=== PATIENT | male | born 1970 | race Two or more races ===

== ENCOUNTER 2024-08-13 20:19 | Inpatient (IN) | payer OTHER ==
[~2024-08-13] VITALS: Ht 175.3 cm; Wt 89.5 kg
--- NOTE | 2024-08-13 20:47 | ED.PDOC ---
GI ASSESSMENT HPI Comments 54y M who presents to the ED via EMS for chief complaint of vomiting. Pt states he has been having vomiting with diarrhea for the past 20 hours straight. Pt states he has not been able to keep anything down. Pt otherwise denies any sick contacts or changes to diet. Pt in the ED, states he is having associated generalized weakness. Pt otherwise denies fever, cough, chills, abdominal pain, dysuria, hematuria or hematemesis. Pt denies use of antibiotics currently. Pt denies any other symptoms at this time. Chief Complaint: Nausea/Vomiting Time Seen by MD: 20:43 Reviewed Notes: Nurses Notes, Hot Box Checker Notes, Medications, Allergies (NKDA) Information Source: Patient, Emergency Med Personnel Mode of Arrival: EMS Brought in by: EMS Timing: Hours Duration: Since onset Prehospital treatment: None Quality: None Vomitus: Food Particles Stool: Loose Severity: Moderate Recent: None Recent Hx of: None Pain Location: None Modifying Factors: Nothing Associated sign and symptoms: Vomiting, Diarrhea Past Medical History PAST MEDICAL HISTORY: DM, High Lipids, HTN Surgical History: Denies all surgeries Family History Family History: Family hx of DM Social History Smoker: Non-Smoker Alcohol: Denies ETOH Use Drugs: Denies Drug Use Lives In: Home Constitutional: denies: chills, diaphoresis, fatigue, fever, malaise, sweats, weakness, others EENTM: denies: blurred vision, double vision, ear bleeding, ear discharge, ear drainage, ear pain, ear ringing, eye pain, eye redness, hearing loss, mouth pain, mouth swelling, nasal discharge, nose bleeding, nose congestion, nose pain, photophobia, tearing, throat pain, throat swelling, voice changes, others Respiratory: denies: cough, hemoptysis, orthopnea, SOB at rest, shortness of breath, SOB with excertion, stridor, wheezing, others Cardiovascular: denies: chest pain, dizzy spells, diaphoresis, Dyspnea on exertion, edema, irregular heart beat, left arm pain, lightheadedness, palpitations, PND, syncope, others Gastrointestinal: reports: diarrhea, vomiting; denies: abdomen distended, abdominal pain, blood streaked bowels, constipated, dysphagia, difficulty swallowing, hematemesis, melena, nausea, poor appetite, poor fluid intake, rectal bleeding, rectal pain, others Genitourinary: denies: burning, dysuria, flank pain, frequency, hematuria, incontinence, penile discharge, penile sore, pain, testicle pain, testicle swelling, urgency, others Neurological: denies: dizziness, fainting, headache, left sided numbness, left sided weakness, numbness, paresthesia, pre-existing deficit, right sided numbness, right sided weakness, seizure, speech problems, tingling, tremors, weakness, others Musculoskeletal: denies: back pain, gout, joint pain, joint swelling, muscle pain, muscle stiffness, neck pain, others Integumetry: denies: bruises, change in color, change in hair/nails, dryness, laceration, lesions, lumps, rash, wounds, others Allergic/Immunocompromised: denies: Difficulty Healing, Frequent Infections, Hives, Itching, others Hematologic/Lymphatic: denies: anemia, blood clots, easy bleeding, easy bruising, swollen glands, others Endocrine: denies: excessive hunger, excessive sweating, excessive thirst, excessive urination, flushing, intolerance to cold, intolerance to heat, unexplained weight gain, unexplained weight loss, others Psychiatric: denies: anxiety, bipolar disorder, depression, hopeless, panic disorder, schizophrenia, sleepless, suicidal, others All Other Systems: Reviewed and Negative Physical Exam General Appearance: Moderate Distress HEENT: Normal ENT Inspection, Pharynx Normal, TMs Normal Neck: Full Range of Motion, Non-Tender, Normal, Normal Inspection Respiratory: Chest Non-Tender, Lungs Clear, No Accessory Muscle Use, No Respiratory Distress, Normal Breath Sounds Cardiovascular: No Edema, No JVD, No Murmur, No Gallop, Normal Peripheral Pulses, Regular Rate/Rhythm Breast Exam: Deferred Gastrointestinal: Diffuse, No Organomegaly, No Pulsatile Mass, Normal Bowel Sounds, Soft, Tenderness Genitalia: Deferred Pelvic: Deferred Rectal: Deferred Extremities: No calf tenderness, Normal capillary refill, Normal inspection, Normal range of motion, Non-tender, No pedal edema Musculoskeletal : Apperance: Normal Neurologic: Alert, commercial relief driver II-XII nml as Tested, No Motor Deficits, Normal Affect, Normal Mood, No Sensory Deficits Cerebellar Function: Normal Reflexes: Normal Skin: Dry, Normal Color, Warm Lymphatic: No Adenopathy Was a procedure done? Was a procedure done?: No GI differential Dx Differential Diagnosis: Constipation, Diverticular disease, Gastritis/PUD, Gastroenteritis, GI hemorrhage, Inflammatory BD, Pancreatitis, Dehydration, Diabetes/ DKA, Electrolyte Imbalance, Food Poisoning, Bacterial, Viral Other Differential Diagnosis colitis, enteritis, X-Ray, Labs, Meds, VS Vital Signs Date Time Temp Pulse Resp B/P (MAP) Pulse Ox O2 Delivery O2 Flow Rate FiO2 08/13/24 20:19 98.1 96 17 121/71 (88) 97 Lab Test 08/13/24 20:50 Range/Units White Blood Count 9.8 4.4-10.8 10^3/uL Red Blood Count 5.18 4.5-5.90 10^6/uL Hemoglobin 15.5 13.5-17.5 g/dL Hematocrit 46.7 41.0-53.0 % Mean Corpuscular Volume 90.1 80.0-100.0 fL Mean Corpuscular Hemoglobin 29.9 28.0-32.0 pg Mean Corpuscular Hemoglobin Concent 33.2 32.0-36.0 g/dL Red Cell Distribution Width 13.4 11.8-14.3 % Platelet Count 243 140-450 10^3/uL Mean Platelet Volume 7.9 6.9-10.8 fL Neutrophils (%) (Auto) 62.3 37.0-80.0 % Lymphocytes (%) (Auto) 24.3 10.0-50.0 % Monocytes (%) (Auto) 10.5 0.0-12.0 % Eosinophils (%) (Auto) 2.5 0.0-7.0 % Basophils (%) (Auto) 0.4 0.0-2.0 % Neutrophils # (Auto) 6.1 1.6-8.6 10 ^3/uL Lymphocytes # (Auto) 2.4 0.4-5.4 10 ^3/uL Monocytes # (Auto) 1.0 0-1.3 10 ^3/uL Eosinophils # (Auto) 0.2 0-0.8 10 ^3/uL Basophils # (Auto) 0 0-0.2 10 ^3/uL Nucleated Red Blood Cells 0.1 % Sodium Level 135 L 136-145 mmol/L Potassium Level 4.7 3.5-5.1 mmol/L Chloride Level 106 98-107 mmol/L Carbon Dioxide Level 21 20-31 mmol/L Anion Gap 8 5-15 Blood Urea Nitrogen 12 9-23 mg/dL Creatinine 0.96 0.700-1.30 mg/dL Glomerular Filtration Rate Calc 93 >90 mL/min BUN/Creatinine Ratio 12.5 10.0-20.0 Serum Glucose 164 H 74-106 mg/dL Calcium Level 9.4 8.7-10.4 mg/dL Current Medications Medications (Trade) Dose Ordered Sig/Missy Route Start Time Stop Time Status Last Admin Sodium Chloride 1,000 ml @ 1,000 mls/hr Q1H ONCE IV 08/13/24 20:45 08/13/24 21:44 DC 08/13/24 21:22 The CBC and chemistry panel are within normal limits An IV Hep-Lock was established The patient was given a 1 L bolus of normal saline The patient was being admitted with a diagnosis of intractable vomiting and metabolic acidosis Images Reviewed?: Images reviewed and evaluated by me Time of 1ST Reevaluation: 21:15 Reevaluation 1ST: Unchanged Patient Education/Counseling: Diagnosis, Treatment Family Education/Counseling: Diagnosis, Treatment Additional Information - I reviewed the following notes from patient's past medical encounters: - The following tests were ordered, and results were reviewed by me: (Labs, X- Ray, EKG): cbc, bmp, ua, - Additional information was gathered from interviewing the following independent Historian: (Family, Other Providers, EMT): EMS - I reviewed and agreed with the following test results read by other provider: (X-ray, CT, US): none - I discussed treatments and results with medical personnel and: (consultants, family): none Departure 1 Departure Time of Disposition: 22:09 Impression: Primary Impression: Metabolic acidosis Additional Impressions: Dehydration Abdominal pain Qualified Codes: R10.84 - Generalized abdominal pain Disposition: ADMITTED INPATIENT Admit to: Med Surg Condition: Fair Critical Care Note Critical Care Time?: No Stability Stability form required: No Heart Score Heart Score: Heart Score Response (Comments) Value History N/A 0 EKG N/A 0 Age N/A 0 Risk Factors N/A 0 Troponin N/A 0 Total 0 I personally scribed for DUSTY HANSEN MD ([email or web address]) on 08/13/24 at 20:47. Electronically submitted by Bobbi Bishop ([email or web address]). DUSTY HANSEN MD Aug 13, 2024 20:47
[2024-08-13] MEDS: SODIUM CHLORIDE 0.9% 1,000 ML IV ONE (21:22)
[2024-08-13 21:26] LABS: Basophils # (auto) 0 10 ^3/uL (0-0.2); Basophils % (auto) 0.4 % (0.0-2.0); Eosinophils # (auto) 0.2 10 ^3/uL (0-0.8); Eosinophils % (auto) 2.5 % (0.0-7.0); Hematocrit 46.7 % (41.0-53.0); Hemoglobin 15.5 g/dL (13.5-17.5); Lymphocytes # (auto) 2.4 10 ^3/uL (0.4-5.4); Lymphocytes % (auto) 24.3 % (10.0-50.0); Mean Corpuscular Hemoglobin 29.9 pg (28.0-32.0); Mean Corpuscular Hgb Conc. 33.2 g/dL (32.0-36.0); Mean Corpuscular Volume 90.1 fL (80.0-100.0); Monocytes % (auto) 10.5 % (0.0-12.0); Neutrophils # (auto) 6.1 10 ^3/uL (1.6-8.6); Neutrophils % (auto) 62.3 % (37.0-80.0); Nucleated Red Blood Cells % 0.1 %; Platelet Count (auto) 243 10^3/uL (140-450); Red Blood Cells 5.18 10^6/uL (4.5-5.90); Red Cell Distribution Width 13.4 % (11.8-14.3); White Blood Cell 9.8 10^3/uL (4.4-10.8)
[2024-08-13 21:34] LABS: Chloride 106 mmol/L (98-107); Potassium 4.7 mmol/L (3.5-5.1)
[2024-08-13 21:35] LABS: Anion Gap 8 (5-15); Calcium 9.4 mg/dL (8.7-10.4); Carbon Dioxide 21 mmol/L (20-31)
[2024-08-13 21:40] LABS: BUN/Creatinine Ratio 12.5 (10.0-20.0); Blood Urea Nitrogen 12 mg/dL (9-23)
[2024-08-13 21:45] LABS: Glucose 164 mg/dL (74-106); Sodium 135 mmol/L (136-145)
[2024-08-14] VITALS (8 sets, daily range): BP systolic 107–131; BP diastolic 69–83; PULSE 69–88; RESP 14–20; TEMP 96.3–98.7; O2SAT 95–100
--- NOTE | 2024-08-14 07:25 | DVHHP2 ---
History of Present Illness Reason for Visit: Abdominal pain History of Present Illness Octavio Aguilera is a 54-year-old male with past medical history of hypertension, hyperlipidemia, and diabetes who presents to the ED for nausea, vomiting, diarrhea, and abdominal pain x1 day. Patient states that he was [place] Patient reports that the pain is 3/10 constant and throbbing. Patient reports that the pain does not radiate anywhere. Patient denies any recent ingestion of spoiled food, recent sick contacts, recent trauma or injury, chest pain, shortness of breath, fever, chills, lightheadedness, and weakness. Cardiovascular: HTN, hyperipidemia Endocrine: Diabetes Past Surgical History: None Family History: DM, Other (Mom with diabetes) Smoke: No ALCOHOL: none Drugs: None Lives: with Family Domestic Violence: Neg Review of Systems Constitutional: No: Fever, Chills, Sweats, Weakness, Malaise, Other Eyes: No: Pain, Vision change, Conjunctivae inflammation, Eyelid inflammation, Other, Redness ENT: No: Ear pain, Ear discharge, Nose pain, Nose discharge, Nose congestion, Mouth pain, Mouth swelling, Throat pain, Throat swelling, Other Respiratory: No: Cough, Dry, Shortness of breath, SOB with excertion, Wheezing, Hemoptysis, Pleuritic Pain, Sputum, Wheezing, Other Cardiovascular: No: Chest Pain, Palpitations, Orthopnea, Paroxysmal Noc. Dyspnea, Edema, Lt Headedness, Other Gastrointestinal: Nausea, Vomiting, Abdominal Pain, Diarrhea; No: Constipation, Melena, Hematochezia, Other Genitourinary: No Dysuria, No Frequency, No Incontinence, No Hematuria, No Retention, No Other Musculoskeletal: No: other, neck pain, shoulder pain, arm pain, back pain, hand pain, leg pain, foot pain Skin: No: Rash, Lesions, Jaundice, Bruising, Other Neurological: No: Weakness, Numbness, Incoordination, Change in speech, Confusion, Seizures, Other Allergies: Coded Allergies: NO KNOWN ALLERGIES (Unverified , 08/14/24) Exam Vital Signs Vital Signs Date Time Temp Pulse Resp B/P (MAP) Pulse Ox O2 Delivery O2 Flow Rate FiO2 08/14/24 04:00 78 08/14/24 03:00 16 120/81 (94) 95 08/14/24 00:50 Room Air* 0 21 08/14/24 00:50 98.4 98.4 General Appearance: Alert, Oriented X3, Cooperative, No acute distress HEENT: Atraumatic, PERRLA, EOMI, Mucous membr. moist/pink Respiratory: Clear to auscultation, Normal air movement Cardiovascular: Regular rate, Normal S1, Normal S2, No murmurs Abdominal: Soft, No hepatospenomegaly, No masses Extremities: No clubbing, No cyanosis, No edema, Normal pulses, No tenderness/swelling Skin: No significant lesion Neuro: Normal gait, Normal speech, Strength at 5/5 X4 ext, Normal tone, Sensation intact Psych/Mental Status: Mental status NL, Mood NL Labs/Xrays Labs Test 08/13/24 20:50 Range/Units White Blood Count 9.8 4.4-10.8 10^3/uL Red Blood Count 5.18 4.5-5.90 10^6/uL Hemoglobin 15.5 13.5-17.5 g/dL Hematocrit 46.7 41.0-53.0 % Mean Corpuscular Volume 90.1 80.0-100.0 fL Mean Corpuscular Hemoglobin 29.9 28.0-32.0 pg Mean Corpuscular Hemoglobin Concent 33.2 32.0-36.0 g/dL Red Cell Distribution Width 13.4 11.8-14.3 % Platelet Count 243 140-450 10^3/uL Mean Platelet Volume 7.9 6.9-10.8 fL Neutrophils (%) (Auto) 62.3 37.0-80.0 % Lymphocytes (%) (Auto) 24.3 10.0-50.0 % Monocytes (%) (Auto) 10.5 0.0-12.0 % Eosinophils (%) (Auto) 2.5 0.0-7.0 % Basophils (%) (Auto) 0.4 0.0-2.0 % Neutrophils # (Auto) 6.1 1.6-8.6 10 ^3/uL Lymphocytes # (Auto) 2.4 0.4-5.4 10 ^3/uL Monocytes # (Auto) 1.0 0-1.3 10 ^3/uL Eosinophils # (Auto) 0.2 0-0.8 10 ^3/uL Basophils # (Auto) 0 0-0.2 10 ^3/uL Nucleated Red Blood Cells 0.1 % Sodium Level 135 L 136-145 mmol/L Potassium Level 4.7 3.5-5.1 mmol/L Chloride Level 106 98-107 mmol/L Carbon Dioxide Level 21 20-31 mmol/L Anion Gap 8 5-15 Blood Urea Nitrogen 12 9-23 mg/dL Creatinine 0.96 0.700-1.30 mg/dL Glomerular Filtration Rate Calc 93 >90 mL/min BUN/Creatinine Ratio 12.5 10.0-20.0 Serum Glucose 164 H 74-106 mg/dL Calcium Level 9.4 8.7-10.4 mg/dL REASON: abd pain ORDER NUMBER(s): [id number], ACCESSION NUMBER(s): [id number] CLINICAL INFORMATION: 54 years old, Male; abdominal pain. TECHNIQUE: Axial CT images of the abdomen and pelvis were obtained without IV contrast. Coronal and sagittal reformatted images were obtained, reviewed, and stored. Evaluation of the parenchymal organs is limited without IV contrast. Evaluation of the bowel and mesentery is limited without oral contrast. All CT scans at this medical facility are performed using dose modulation techniques as appropriate to a performed exam including the following: Automated exposure control was utilized; adjustment of the MA and/or KV according to patient size; and use of iterative reconstruction technique. CTDIvol = 9.46 mGy DLP = 489.68 mGy-cm COMPARISON: None FINDINGS: Lung bases: Lung bases are clear. Liver: Grossly unremarkable in its noncontrast enhanced appearance. No abnormal density or focal lesion identified. Biliary: No calcified gallstones or biliary ductal dilatation. Spleen: Unremarkable. Pancreas: Grossly unremarkable in its noncontrast enhanced appearance. Adrenal glands: Unremarkable. No mass. Kidneys: No hydronephrosis. No renal or ureteral calculi. Aorta/Vascular: Scattered mild atherosclerotic calcification. No abdominal aortic aneurysm. Retroperitoneum: No mass or lymphadenopathy. Bowel/mesentery: Nonspecific nondilated fluid-filled small bowel loops. No small bowel obstruction. Appendix is visualized and appears unremarkable. Scattered small colonic diverticula without adjacent inflammatory changes to suggest diverticulitis. Pelvic organs: Grossly unremarkable. Bladder: Unremarkable. No mass. Abdominal wall: No mass or hernia. Bones: No acute fracture or suspicious intraosseous lesion. IMPRESSION: 1. Nonspecific nondilated fluid-filled small bowel loops. Findings may be seen with ileus or enteritis in the appropriate clinical setting. No small bowel obstruction. 2. Scattered small colonic diverticula without adjacent inflammatory changes to suggest diverticulitis. 3. Additional nonacute findings as described above. EXAM: XR Chest, 1 View CLINICAL INDICATION: pain TECHNIQUE: Frontal view of the chest. COMPARISON: None FINDINGS: LUNGS AND PLEURAL SPACES: Unremarkable. No consolidation. No pneumothorax. HEART: Unremarkable. No cardiomegaly. MEDIASTINUM: Unremarkable. Normal mediastinal contour. BONES/JOINTS: Unremarkable. No acute fracture. OTHER FINDINGS: . None. ... IMPRESSION: No acute cardiopulmonary process. Assessment/Plan Assessment/Plan Assessment/Plan: Intractable abdominal pain likely due to enteritis versus diverticulitis NS 1 L given ED UA CT abdomen and pelvis Chest x-ray Antiemetics Pain management A.m. labs Labs IV antibiotics-vancomycin + Zosyn Diabetes type 2 uncontrolled Hemoglobin A1c 8.5% ISS and Accu-Cheks History of hypertension Continue home medications History of hyperlipidemia Continue home medications FEN/PPX Diet Hep-Lock DVT prophylaxis not indicated patient ambulating PUD prophylaxis - Protonix Admit to med surg Home medications reconciled Discussed plan of care with patient and nurse Plan discussed with: Patient My Orders Orders - MISHEL CHANG SEXUAL ASSAULT COUNSELOR Procedure Category Date Status Time Ct Ab Pel Wo Con-No CT 08/14/24 Transmitted Oral Or Iv 07:21 Admit ADMIT 08/14/24 Transmitted 07:21 Allergies ANA PAULA 08/14/24 Transmitted 07:21 Code Status CODE 08/14/24 Transmitted 07:21 Hydrocodone-Acet PHA 08/14/24 Transmitted 5/325mg Tab ([place] 07:30 Ondansetron Hcl PHA 08/14/24 Transmitted (Zofran) 07:30 Complete Blood Count LAB 08/15/24 Verified 04:00 Comprehensive LAB 08/15/24 Verified Metabolic Panel 04:00 Cardiac DIET 08/14/24 Transmitted Diet-2gna,Lofat,Lochol Breakfast Acetaminophen Tablet PHA 08/14/24 Transmitted (Tylenol Tablet) 07:30 Morphine Sulfate PHA 08/14/24 Transmitted Injection 07:30 Hemoglobin A1c LAB 08/14/24 Transmitted 07:21 Glucose Blood PHA 08/14/24 Transmitted (Accu-Chek Comfort 11:30 Mild Sliding Scale PHA 08/14/24 Transmitted 11:30 Dextrose 50% Syringe PHA 08/14/24 Transmitted 07:30 Chest Xray 1 View XY 08/14/24 Transmitted 07:21 Lipase LAB 08/14/24 Transmitted 07:21 Amylase LAB 08/14/24 Transmitted 07:21 Date of Service: Aug 14, 2024 Billing Provider: MISHEL CHANG Common Visit Codes: [id number] INP/OBS CARE (HIGH) MISHEL CHANG Aug 14, 2024 07:25
[2024-08-14] MEDS ORDERED: BROM2.5T5 (07:26)
[2024-08-14] MEDS ORDERED: ATOR40TA52 (07:26)
[2024-08-14] MEDS ORDERED: ASPI-325 (07:26)
[2024-08-14] MEDS ORDERED: LISI10TA34 (07:26)
[2024-08-14] MEDS ORDERED: SEMA14TA2 (07:26)
[2024-08-14] MEDS ORDERED: DEXTROSE (50%) 50ML SYRG IV PRN ×2 (07:30→13:45)
[2024-08-14] MEDS ORDERED: ACETAMINOPHEN 325 MG TAB PO PRN (07:30)
[2024-08-14] MEDS ORDERED: MORPHINE SULFATE INJ 2 MG/ml SYRG IV PRN (07:30)
[2024-08-14] MEDS ORDERED: ONDANSETRON HCL 4 MG/2 ML VIAL IV PRN (07:30)
[2024-08-14] MEDS ORDERED: HYDROcodone-ACET 5/325MG TAB PO PRN (07:30)
[2024-08-14 07:43] LABS: Urine Bacteria None Seen /hpf (None Seen)
[2024-08-14 07:53] LABS: Urine Blood Negative /uL (Negative); Urine Clarity Clear (Clear); Urine Color Light-Yellow (Yellow); Urine Mucus FEW (None Seen); Urine Protein, UAD TRACE (Negative); Urine Specific Gravity 1.017 (1.001-1.035); Urine Squamous Epithelial Cell FEW /hpf (<5); Urine Urobilinogen Normal (Negative); Urine WBC 5 /HPF (0-3); Urine pH 5.5 (5.0-9.0)
--- NOTE | 2024-08-14 08:07 | DVH ---
EXAM: XR Chest, 1 View CLINICAL INDICATION: pain TECHNIQUE: Frontal view of the chest. COMPARISON: None FINDINGS: LUNGS AND PLEURAL SPACES: Unremarkable. No consolidation. No pneumothorax. HEART: Unremarkable. No cardiomegaly. MEDIASTINUM: Unremarkable. Normal mediastinal contour. BONES/JOINTS: Unremarkable. No acute fracture. OTHER FINDINGS: . None. ... IMPRESSION: No acute cardiopulmonary process.
--- NOTE | 2024-08-14 08:16 | DVH ---
CLINICAL INFORMATION: 54 years old, Male; abdominal pain. TECHNIQUE: Axial CT images of the abdomen and pelvis were obtained without IV contrast. Coronal and s agittal reformatted images were obtained, reviewed, and stored. Evaluation of the parenchymal organs is limited without IV contrast. Evaluation of the bowel and mesentery is limited without oral contras t. All CT scans at this medical facility are performed using dose modulation techniques as appropriat e to a performed exam including the following: Automated exposure control was utilized; adjustment of the MA and/or KV according to patient size; and use of iterative reconstruction technique. CTDIvol = 9.46 mGy DLP = 489.68 mGy-cm COMPARISON: None FINDINGS: Lung bases: Lung bases are clear. Liver: Grossly unremarkable in its noncontrast enhanced appearance. No abnormal density or focal lesi on identified. Biliary: No calcified gallstones or biliary ductal dilatation. Spleen: Unremarkable. Pancreas: Grossly unremarkable in its noncontrast enhanced appearance. Adrenal glands: Unremarkable. No mass. Kidneys: No hydronephrosis. No renal or ureteral calculi. Aorta/Vascular: Scattered mild atherosclerotic calcification. No abdominal aortic aneurysm. Retroperitoneum: No mass or lymphadenopathy. Bowel/mesentery: Nonspecific nondilated fluid-filled small bowel loops. No small bowel obstruction. A ppendix is visualized and appears unremarkable. Scattered small colonic diverticula without adjacent inflammatory changes to suggest diverticulitis. Pelvic organs: Grossly unremarkable. Bladder: Unremarkable. No mass. Abdominal wall: No mass or hernia. Bones: No acute fracture or suspicious intraosseous lesion. IMPRESSION: 1. Nonspecific nondilated fluid-filled small bowel loops. Findings may be seen with ileus or enteriti s in the appropriate clinical setting. No small bowel obstruction. 2. Scattered small colonic diverticula without adjacent inflammatory changes to suggest diverticuliti s. 3. Additional nonacute findings as described above.
[2024-08-14 09:28] LABS: Amylase 78 U/L (30-118)
[2024-08-14 10:30] LABS: Lipase 52 U/L (12-53)
[2024-08-14] MEDS ORDERED: VANCOMYCIN PER PHARMACY 0 MG IV SCH (11:15)
[2024-08-14] MEDS: PIPERACILLIN-TAZOB 3.375GM 100 ML IV ONE (12:24)
[2024-08-14] MEDS: ACCU-CHEK COMFORT CURVE STRIP VI SCH ×2 (12:24→17:27)
[2024-08-14] MEDS: InsuLIN REG 1unit/0.01ml Soln (100units/ml) SC SCH ×3 (12:25→22:19)
--- NOTE | 2024-08-14 13:44 | DVHPN2 ---
Progress Note Date Seen: Aug 14, 2024 Medical Necessity Reason Pt with a Central, PICC or Fol: No Subjective Patient reports: No new complaints Review of Systems: HEENT:Normal, CVS:Normal, RESPIRATORY:Normal, GI:Normal, :Normal, MSK:Normal, NEURO:Normal Objective vital signs Vital Sign Date Time Temp Pulse Resp B/P (MAP) Pulse Ox O2 Delivery O2 Flow Rate FiO2 08/14/24 12:43 97.7 85 17 107/69 (82) 97 97.7 08/14/24 00:50 Room Air* 0 21 Total Intake and Output 08/13/24 08/13/24 08/14/24 15:00 23:00 07:00 Intake Total 1000 ml Balance 1000 ml medications Current Medications Medications Dose Ordered Sig/Missy Route Start Time Stop Time Status Last Admin Dose Admin Acetaminophen/ Hydrocodone Bitart 1 tab Q4HP PRN PO 08/14/24 07:30 Ondansetron HCl 4 mg Q4HP PRN IV 08/14/24 07:30 Acetaminophen 650 mg Q6HP PRN PO 08/14/24 07:30 Morphine Sulfate 2 mg Q4HPRN PRN IV 08/14/24 07:30 Diagnostic Test (Pha) 1 strip ACHS 08/14/24 11:30 08/14/24 12:24 1 STRIP Insulin Human Regular ACHS SC 08/14/24 11:30 08/14/24 12:25 4 UNITS Dextrose 50 ml UD PRN IV 08/14/24 07:30 Vancomycin HCl 0 ml @ 0 mls/hr UD IV 08/14/24 11:15 Piperacillin Sod/ Tazobactam Sod 100 ml @ 25 mls/hr Q8HR IV 08/14/24 14:00 Pantoprazole Sodium 40 mg DAILY IV 08/15/24 10:00 Examination: GENERAL:Normal, HEENT:Normal, NECK:Normal, LUNGS:Normal, CVS:Normal, ABDOMEN:Normal, MSK:Normal, SKIN:Normal, NEURO:Normal, :Normal laboratory and microbiology Laboratory Tests 08/13/24 20:50 Test 08/13/24 20:50 Range/Units Serum Glucose 164 H 74-106 mg/dL Problem List/Assessment/Plan Problem List/Assessment/Plan #1 abd pain with ? acute ge: ivf, ppi #2 dm: ssi #3 htn #4 hyperlipidemia advance care planning- full code- time spent 19 mins Plan discussed with: Patient My Orders My Orders Orders - JANET YAÑEZ MD Procedure Category Date Status Time Consistent DIET 08/14/24 [facility]Diabetes Lunch Date of Service: Aug 14, 2024 Billing Provider: JANET YAÑEZ MD Common Visit Codes: [id number] INP/OBS CARE(HIGH) Secondary Visit Codes: [id number] CARE PLAN 30 MINUTES JANET YAÑEZ MD Aug 14, 2024 13:44
[2024-08-14] MEDS ORDERED: PIPERACILLIN-TAZOB 3.375GM 100 ML IV SCH (14:00)
[2024-08-14] MEDS: VANCOMYCIN 1.75GM/350ML 350 ML IV ONE (14:29)
[2024-08-15 04:56] VITALS: BP 119/75; PULSE 79; RESP 18; TEMP 97.8; O2SAT 97
[2024-08-15 05:18] LABS: Basophils # (auto) 0 10 ^3/uL (0-0.2); Basophils % (auto) 0.6 % (0.0-2.0); Eosinophils # (auto) 0.2 10 ^3/uL (0-0.8); Eosinophils % (auto) 3.2 % (0.0-7.0); Hematocrit 46.8 % (41.0-53.0); Hemoglobin 15.3 g/dL (13.5-17.5); Lymphocytes # (auto) 2.7 10 ^3/uL (0.4-5.4); Lymphocytes % (auto) 39.7 % (10.0-50.0); Mean Corpuscular Hemoglobin 29.4 pg (28.0-32.0); Mean Corpuscular Hgb Conc. 32.7 g/dL (32.0-36.0); Mean Corpuscular Volume 89.9 fL (80.0-100.0); Monocytes # (auto) 0.7 10 ^3/uL (0-1.3); Monocytes % (auto) 9.7 % (0.0-12.0); Neutrophils # (auto) 3.2 10 ^3/uL (1.6-8.6); Neutrophils % (auto) 46.8 % (37.0-80.0); Nucleated Red Blood Cells % 0.2 %; Platelet Count (auto) 240 10^3/uL (140-450); Red Cell Distribution Width 12.9 % (11.8-14.3); White Blood Cell 6.7 10^3/uL (4.4-10.8)
[2024-08-15 05:23] LABS: Alanine Aminotransferase 17 U/L (7-40); Alkaline Phosphatase 78 U/L (46-116); Anion Gap 8 (5-15); BUN/Creatinine Ratio 13.6 (10.0-20.0); Blood Urea Nitrogen 11 mg/dL (9-23); Calcium 9.6 mg/dL (8.7-10.4); Carbon Dioxide 24 mmol/L (20-31); Chloride 106 mmol/L (98-107); Potassium 4.1 mmol/L (3.5-5.1); Sodium 138 mmol/L (136-145); Total Protein 6.8 g/dL (5.7-8.2)
[2024-08-15 05:24] LABS: Aspartate Aminotransferase 9 U/L (13-40); Bilirubin, Total 1.3 mg/dL (0.2-1.0); Glucose 129 mg/dL (74-106)
[2024-08-15 05:26] LABS: Albumin 4.4 g/dL (3.2-4.8)
[2024-08-15 08:30] VITALS: BP 119/73; PULSE 87; RESP 17; TEMP 98; O2SAT 96
[2024-08-15] MEDS: PANTOPRAZOLE 40 MG/10 ML VIAL INJ IV SCH (09:40)
[2024-08-15 13:00] VITALS: BP 124/80; PULSE 74; RESP 17; TEMP 98.1; O2SAT 98
--- NOTE | 2024-08-15 13:19 | DVHPN2 ---
Reviewed: Care Plan, H&P, Labs, Medications, Previous Orders, Radiology Changes from previous H/P or p: No Changes Eyes: No Pain, No Vision change, No Conjunctivae inflammation, No Eyelid inflammation, No Other, No Redness ENT: No Ear pain, No Ear discharge, No Nose pain, No Nose discharge, No Nose congestion, No Mouth pain, No Mouth swelling, No Throat pain, No Throat swelling, No Other Cardiovascular: No Chest Pain, No Palpitations, No Orthopnea, No Paroxysmal Noc. Dyspnea, No Edema, No Lt Headedness, No Other Respiratory: No Cough, No Dry, No Shortness of breath, No SOB with excertion, No Wheezing, No Hemoptysis, No Pleuritic Pain, No Sputum, No Other Gastrointestinal: Nausea, Vomiting, Abdominal Pain, Diarrhea; No Constipation, No Melena, No Hematochezia, No Other Genitourinary: No Dysuria, No Frequency, No Incontinence, No Hematuria, No Retention, No Other Musculoskeletal: No other, No neck pain, No shoulder pain, No arm pain, No back pain, No hand pain, No leg pain, No foot pain Skin: No Rash, No Lesions, No Jaundice, No Bruising, No Other Objective Vitals Vital Signs Date Time Temp Pulse Resp B/P (MAP) Pulse Ox O2 Delivery O2 Flow Rate FiO2 08/15/24 08:30 98.0 87 17 119/73 (88) 96 98.0 08/15/24 08:00 Room Air* 0 21 Intake/Output Intake and Output 08/15/24 07:00 Intake Total 1040 ml Balance 1040 ml Intake Oral 590 ml IV Total 450 ml # Voids 1 Medications Current Medications Medications Dose Ordered Sig/Missy Route Start Time Stop Time Status Last Admin Dose Admin Acetaminophen/ Hydrocodone Bitart 1 tab Q4HP PRN PO 08/14/24 07:30 Ondansetron HCl 4 mg Q4HP PRN IV 08/14/24 07:30 Acetaminophen 650 mg Q6HP PRN PO 08/14/24 07:30 Morphine Sulfate 2 mg Q4HPRN PRN IV 08/14/24 07:30 Pantoprazole Sodium 40 mg DAILY IV 08/15/24 10:00 08/15/24 09:40 40 MG Diagnostic Test (Pha) 1 strip ACHS 08/14/24 17:00 08/15/24 11:57 1 STRIP Insulin Human Regular HS SC 08/14/24 22:00 08/14/24 22:19 4 UNITS Insulin Human Regular AC SC 08/14/24 17:00 08/15/24 11:59 3 UNITS Dextrose 50 ml UD PRN IV 08/14/24 13:45 Laboratory Results Laboratory Tests 08/15/24 03:51 Chemistry Test 08/15/24 03:51 Albumin 4.4 g/dL (3.2-4.8) Calcium Level 9.6 mg/dL (8.7-10.4) Total Protein 6.8 g/dL (5.7-8.2) LFT Test 08/15/24 03:51 Alanine Aminotransferase (ALT) 17 U/L (7-40) Alkaline Phosphatase 78 U/L (46-116) Aspartate Amino Transferase (AST) 9 U/L (13-40) L Total Bilirubin 1.3 mg/dL (0.2-1.0) H Urinalysis Test 08/14/24 07:00 Urine Color Light-yellow (Yellow) Urine Clarity Clear (Clear) Urine pH 5.5 (5.0-9.0) Urine Specific [place] 1.017 (1.001-1.035) Urine Protein Trace (Negative) H Urine Ketones Trace (Negative) Urine Blood Negative /uL (Negative) Urine Nitrite Negative (Negative) Urine Bilirubin Negative (Negative) Urine Urobilinogen Normal mg/dL (Negative) Urine Leukocyte Esterase Negative /uL (Negative) Urine RBC <1 /hpf (0 - 3) Urine Microscopic WBC 5 /HPF (0-3) H Urine Squamous Epithelial Cells Few /hpf (<5) Urine Bacteria None seen /hpf (None Seen) Urine Mucus Few (None Seen) Urine Glucose 3+ mg/dL (Normal) H Labs and/or images reviewed: Labs reviewed by me, Image(s) reviewed by me Assessment/Plan Assessment/Plan Covering For Dr. Melissa #1 abd pain gastroenteritis: IV fluids pantoprazole #2 dm: ssi #3 htn #4 hyperlipidemia Feeling better today Plan discussed with: Patient Date of Service: Aug 15, 2024 Billing Provider: SARTHAK SANCHEZ MD Common Visit Codes: [id number] INP/OBS CARE(HIGH) SARTHAK SANCHEZ MD Aug 15, 2024 13:19
[2024-08-15] MEDS: SODIUM CHLORIDE 0.9% 1,000 ML IV SCH (13:45)
[2024-08-15 16:50] VITALS: BP 115/70; PULSE 69; RESP 16; TEMP 97.9; O2SAT 97
[2024-08-15 21:00] VITALS: BP 133/82; PULSE 72; RESP 17; TEMP 97.8; O2SAT 100
[2024-08-16 01:00] VITALS: BP 111/75; PULSE 68; RESP 17; TEMP 97.5; O2SAT 96
[2024-08-16 05:00] VITALS: BP 126/75; PULSE 75; RESP 17; TEMP 97.8; O2SAT 100
[2024-08-16 08:00] VITALS: PULSE 68; RESP 17; O2SAT 99
[2024-08-16 09:00] VITALS: BP 133/83; PULSE 70; RESP 20; TEMP 97.4; O2SAT 99
[2024-08-16 13:00] VITALS: BP 122/79; PULSE 83; RESP 20; TEMP 97.9; O2SAT 100
--- NOTE | 2024-08-16 13:08 | DVHPN2 ---
Reviewed: Care Plan, H&P, Labs, Medications, Previous Orders, Radiology Changes from previous H/P or p: No Changes Eyes: No Pain, No Vision change, No Conjunctivae inflammation, No Eyelid inflammation, No Other, No Redness ENT: No Ear pain, No Ear discharge, No Nose pain, No Nose discharge, No Nose congestion, No Mouth pain, No Mouth swelling, No Throat pain, No Throat swelling, No Other Cardiovascular: No Chest Pain, No Palpitations, No Orthopnea, No Paroxysmal Noc. Dyspnea, No Edema, No Lt Headedness, No Other Respiratory: No Cough, No Dry, No Shortness of breath, No SOB with excertion, No Wheezing, No Hemoptysis, No Pleuritic Pain, No Sputum, No Other Gastrointestinal: Nausea, Vomiting, Abdominal Pain, Diarrhea; No Constipation, No Melena, No Hematochezia, No Other Genitourinary: No Dysuria, No Frequency, No Incontinence, No Hematuria, No Retention, No Other Musculoskeletal: No other, No neck pain, No shoulder pain, No arm pain, No back pain, No hand pain, No leg pain, No foot pain Skin: No Rash, No Lesions, No Jaundice, No Bruising, No Other Objective Vitals Vital Signs Date Time Temp Pulse Resp B/P (MAP) Pulse Ox O2 Delivery O2 Flow Rate FiO2 08/16/24 09:00 97.4 70 20 133/83 (100) 99 97.4 08/16/24 08:00 Room Air* 0 21 Intake/Output Intake and Output 08/16/24 07:00 Intake Total 1787.5 ml Balance 1787.5 ml Intake Oral 1100 ml IV Total 687.5 ml # Voids 3 Medications Current Medications Medications Dose Ordered Sig/Missy Route Start Time Stop Time Status Last Admin Dose Admin Acetaminophen/ Hydrocodone Bitart 1 tab Q4HP PRN PO 08/14/24 07:30 Ondansetron HCl 4 mg Q4HP PRN IV 08/14/24 07:30 Acetaminophen 650 mg Q6HP PRN PO 08/14/24 07:30 Morphine Sulfate 2 mg Q4HPRN PRN IV 08/14/24 07:30 Pantoprazole Sodium 40 mg DAILY IV 08/15/24 10:00 08/16/24 10:04 40 MG Diagnostic Test (Pha) 1 strip ACHS 08/14/24 17:00 08/16/24 11:30 1 STRIP Insulin Human Regular HS SC 08/14/24 22:00 08/14/24 22:19 4 UNITS Insulin Human Regular AC SC 08/14/24 17:00 08/16/24 12:00 3 UNITS Dextrose 50 ml UD PRN IV 08/14/24 13:45 Sodium Chloride 1,000 ml @ 125 mls/hr Q8H IV 08/15/24 13:45 08/16/24 05:33 125 MLS/HR Laboratory Results Laboratory Tests 08/15/24 03:51 Urinalysis Test 08/14/24 07:00 Urine Color Light-yellow (Yellow) Urine Clarity Clear (Clear) Urine pH 5.5 (5.0-9.0) Urine Specific [place] 1.017 (1.001-1.035) Urine Protein Trace (Negative) H Urine Ketones Trace (Negative) Urine Blood Negative /uL (Negative) Urine Nitrite Negative (Negative) Urine Bilirubin Negative (Negative) Urine Urobilinogen Normal mg/dL (Negative) Urine Leukocyte Esterase Negative /uL (Negative) Urine RBC <1 /hpf (0 - 3) Urine Microscopic WBC 5 /HPF (0-3) H Urine Squamous Epithelial Cells Few /hpf (<5) Urine Bacteria None seen /hpf (None Seen) Urine Mucus Few (None Seen) Urine Glucose 3+ mg/dL (Normal) H Labs and/or images reviewed: Labs reviewed by me, Image(s) reviewed by me Assessment/Plan Assessment/Plan Covering For Dr. Melissa #1 abd pain gastroenteritis: IV fluids pantoprazole #2 dm: ssi #3 htn #4 hyperlipidemia Feeling better today willing to go home Plan discussed with: Patient My Orders Orders - SARTHAK SANCHEZ MD Procedure Category Date Status Time Sodium Chloride 0.9% PHA 08/15/24 In Process 13:45 Date of Service: Aug 16, 2024 Billing Provider: SARTHAK SANCHEZ MD Common Visit Codes: [id number] INP/OBS CARE(HIGH) SARTHAK SANCHEZ MD Aug 16, 2024 13:08
--- NOTE | 2024-08-16 13:10 | DVHDS2 ---
Discharge Summary Date of Admission Aug 14, 2024 at 07:21 Date of Discharge: Aug 16, 2024 Admitting Diagnosis Abdominal pain nausea and vomiting Wounds: None Labs/Diagnostic Data: Laboratory Results Test 08/16/24 11:27 08/15/24 03:51 08/14/24 08:30 08/14/24 07:00 POC Glucose 163 mg/dl (70-106) White Blood Count 6.7 10^3/uL (4.4-10.8) Red Blood Count 5.20 10^6/uL (4.5-5.90) Hemoglobin 15.3 g/dL (13.5-17.5) Hematocrit 46.8 % (41.0-53.0) Mean Corpuscular Volume 89.9 fL (80.0-100.0) Mean Corpuscular Hemoglobin 29.4 pg (28.0-32.0) Mean Corpuscular Hemoglobin Concent 32.7 g/dL (32.0-36.0) Red Cell Distribution Width 12.9 % (11.8-14.3) Platelet Count 240 10^3/uL (140-450) Mean Platelet Volume 7.8 fL (6.9-10.8) Neutrophils (%) (Auto) 46.8 % (37.0-80.0) Lymphocytes (%) (Auto) 39.7 % (10.0-50.0) Monocytes (%) (Auto) 9.7 % (0.0-12.0) Eosinophils (%) (Auto) 3.2 % (0.0-7.0) Basophils (%) (Auto) 0.6 % (0.0-2.0) Neutrophils # (Auto) 3.2 10 ^3/uL (1.6-8.6) Lymphocytes # (Auto) 2.7 10 ^3/uL (0.4-5.4) Monocytes # (Auto) 0.7 10 ^3/uL (0-1.3) Eosinophils # (Auto) 0.2 10 ^3/uL (0-0.8) Basophils # (Auto) 0 10 ^3/uL (0-0.2) Nucleated Red Blood Cells 0.2 % Sodium Level 138 mmol/L (136-145) Potassium Level 4.1 mmol/L (3.5-5.1) Chloride Level 106 mmol/L (98-107) Carbon Dioxide Level 24 mmol/L (20-31) Anion Gap 8 (5-15) Blood Urea Nitrogen 11 mg/dL (9-23) Creatinine 0.81 mg/dL (0.700-1.30) Glomerular Filtration Rate Calc 104 mL/min (>90) BUN/Creatinine Ratio 13.6 (10.0-20.0) Serum Glucose 129 mg/dL (74-106) Calcium Level 9.6 mg/dL (8.7-10.4) Total Bilirubin 1.3 mg/dL (0.2-1.0) Aspartate Amino Transferase (AST) 9 U/L (13-40) Alanine Aminotransferase (ALT) 17 U/L (7-40) Alkaline Phosphatase 78 U/L (46-116) Total Protein 6.8 g/dL (5.7-8.2) Albumin 4.4 g/dL (3.2-4.8) Hemoglobin A1c 8.5 % A1C (<5.7) Amylase Level 78 U/L (30-118) Lipase 52 U/L (12-53) Urine Color Light-yellow (Yellow) Urine Clarity Clear (Clear) Urine pH 5.5 (5.0-9.0) Urine Specific [place] 1.017 (1.001-1.035) Urine Protein Trace (Negative) Urine Ketones Trace (Negative) Urine Blood Negative /uL (Negative) Urine Nitrite Negative (Negative) Urine Bilirubin Negative (Negative) Urine Urobilinogen Normal mg/dL (Negative) Urine Leukocyte Esterase Negative /uL (Negative) Urine RBC <1 /hpf (0 - 3) Urine Microscopic WBC 5 /HPF (0-3) Urine Squamous Epithelial Cells Few /hpf (<5) Urine Bacteria None seen /hpf (None Seen) Urine Mucus Few (None Seen) Urine Glucose 3+ mg/dL (Normal) Other Laboratory Tests 08/15/24 03:51 Brief Hx & Hospital Course: 54-year-old male with a history of hypertension diabetes and hypercholesterolemia came in complaining of abdominal pain nausea and vomiting. CT abdomen pelvis without contrast showed gastroenteritis treated with the IV fluids pantoprazole. Diabetes controlled with insulin sliding scale. All labs normal. Patient feels better and is being discharged home. Advised to drink lot of fluids and follow up with his primary Dr continue his home medications. No new medications. Consults/Reason for consult None Operations or Procedures CT abdomen pelvis without contrast Condition at Discharge: Fair Final Diagnosis/Problems List #1 abd pain gastroenteritis: IV fluids pantoprazole #2 dm: ssi #3 htn #4 hyperlipidemia Discharge Disposition: Home Discharge Instruct/Medications Diet: Regular Activity: Light activity Follow Up/Referral: Drink lot of fluids Follow up with your primary Dr Medications: none 35 (Time taken for discharge summary 35 minutes) Discharge Statement: "Patient was advised to return to the ER or call 911 if any headaches, dizziness, shortness of breath, chest pain, abdominal pain, bleeding, fevers, or worsening of medical condition. Patient was counseled about treatment plan, medications, possible side effects, patientverbalized understanding. All questions were answered to the best of my ability. This discharge took greater then 30 minutes in planning, reviewing documentation, counseling the patient, and discussing with other team members." ASSESSMENT ASSESSMENT Hospital Course Improved Assessment #1 abd pain gastroenteritis: IV fluids pantoprazole #2 dm: ssi #3 htn #4 hyperlipidemia Date of Service: Aug 16, 2024 Billing Provider: SARTHAK SANCHEZ MD Common Visit Codes: [id number] DISCH DAY >30min SARTHAK SANCHEZ MD Aug 16, 2024 13:10
[2024-08-16 13:46] VITALS: TEMP 36.3
== END 2024-08-16 14:49 | disposition home or self-care (01) | DRG 392 ==
LOC: ER 20:19 → EDBD 20:19 → OVERFLOW 08-14 07:21 → WEST WING 08-14 21:19
PROVIDERS: ADMIT Family Medicine; ATTEND Family Medicine
DX: K52.9 Noninfective gastroenteritis and colitis, unspecified (principal); E87.20 Acidosis, unspecified; E11.9 Type 2 diabetes mellitus without complications; E78.5 Hyperlipidemia, unspecified; E86.0 Dehydration; I10 Essential (primary) hypertension; E78.00 Pure hypercholesterolemia, unspecified; Z83.3 Family history of diabetes mellitus; Z79.4 Long term (current) use of insulin; Z79.899 Other long term (current) drug therapy
CPT/HCPCS: 36415; 71045; 74176; 80048; 80053; 81001; 82150; 82962; 83036; 83690; 85025; 96360; G0378; J1815; J2470; J2543